=== PATIENT | male | born 1960 | race Hispanic/Latino ===

== ENCOUNTER 2021-08-23 08:16 | Emergency (ER) | payer OTHER ==
--- NOTE | 2021-08-23 08:41 | EDPHYS ---
Physician Documentation [facility] Name: Ugo Moreno Age: 60 yrs Sex: Male : 1960 Arrival Date: 08/23/2021 Time: 08:19 Bed 25 Private MD: ED Physician Geovani Cornell HPI: 08/23 08:35 This 60 yrs old Male presents to ER via Ambulatory with complaints of Insect sp3 Bite. 08:35 -year-old male with history of diabetes presents with a 2-day history of right elbow sp3 pain, swelling, redness secondary to a "insect bite". Patient denies fever, proximal or distal joint pain, loss of function in any capacity including range of motion, chest pain, fever, shortness of breath, URI symptoms, neck pain, rash anywhere else, or use of the elbow, or any other symptoms on ROS at this time. Remainder of ROS negative.. Historical: - Allergies: 08:27 No Known Allergies; aa5 - PMHx: 08:27 Diabetes mellitus; aa5 - PSHx: 08:27 None; aa5 - Immunization history:: Client reports receiving the 2nd dose of the Covid vaccine. - Social history:: Smoking status: Patient denies any tobacco usage or history of. ROS: 08:36 All other systems are negative. sp3 08:36 Constitutional: Negative for fever, chills, and weight loss, Eyes: Negative for injury, sp3 pain, redness, and discharge, ENT: Negative for injury, pain, and discharge, Neck: Negative for injury, pain, and swelling, Cardiovascular: Negative for chest pain, palpitations, and edema, Respiratory: Negative for shortness of breath, cough, wheezing, and pleuritic chest pain, Abdomen/GI: Negative for abdominal pain, nausea, vomiting, diarrhea, and constipation, Back: Negative for injury and pain, Neuro: Negative for headache, weakness, numbness, tingling, and seizure, Allergy/Immunology: Negative for hives, rash, and allergies, Endocrine: Negative for neck swelling, polydipsia, polyuria, polyphagia, and marked weight changes, Hematologic/Lymphatic: Negative for swollen nodes, abnormal bleeding, and unusual bruising. Exam: 08:36 Constitutional: This is a well developed, well nourished patient who is awake, alert, sp3 and in no acute distress. Head/Face: Normocephalic, atraumatic. Eyes: Pupils equal round and reactive to light, extra-ocular motions intact. Lids and lashes normal. Conjunctiva and sclera are non-icteric and not injected. Cornea within normal limits. Periorbital areas with no swelling, redness, or edema. Neck: Trachea midline, no thyromegaly or masses palpated, and no cervical lymphadenopathy. Supple, full range of motion without nuchal rigidity, or vertebral point tenderness. No Meningismus. Chest/axilla: Normal chest wall appearance and motion. Nontender with no deformity. No lesions are appreciated. Cardiovascular: Regular rate and rhythm with a normal S1 and S2. No gallops, murmurs, or rubs. Normal PMI, no JVD. No pulse deficits. Respiratory: Lungs have equal breath sounds bilaterally, clear to auscultation and percussion. No rales, rhonchi or wheezes noted. No increased work of breathing, no retractions or nasal flaring. Abdomen/GI: Soft, non-tender, with normal bowel sounds. No distension or tympany. No guarding or rebound. No evidence of tenderness throughout. Neuro: Awake and alert, GCS 15, oriented to person, place, time, and situation. Cranial nerves II-XII grossly intact. Motor strength 5/5 in all extremities. Sensory grossly intact. Cerebellar exam normal. Normal gait. Psych: Awake, alert, with orientation to person, place and time. Behavior, mood, and affect are within normal limits. 08:36 Skin: Right elbow demonstrates surface erythema consistent with cellulitis as well as bursa swelling. There is no joint effusion and no trauma. Overlying insect bite without abscess is noted.. Vital Signs: 08:28 BP 137 / 83; Pulse 73; Resp 16 S; Temp 97.2(TE); Pulse Ox 99% on R/A; Weight 107.05 kg aa5 (R); Height 5 ft. 10 in. (177.80 cm) (R); 08:28 Body Mass Index 33.86 (107.05 kg, 177.80 cm) aa5 MDM: 08:30 Patient medically screened. sp3 08:37 Data reviewed: vital signs, nurses notes. ED course: Patient has cellulitis and sp3 bursitis which is likely infectious in origin. I am not suspicious of joint effusion, sepsis, bacteremia, trauma, or any other critical findings at this time. Will discharge patient home on combination of Bactrim and clindamycin will treatment. Patient will receive ketorolac intramuscular here in the emergency room before discharge.. Administered Medications: 08:41 Drug: Ketorolac 30 mg Route: IM; Site: right deltoid; ap3 08:45 Follow up: Response: No adverse reaction ap3 Disposition Summary: 08/23/21 08:40 Discharge Ordered Location: Home sp3 Condition: Stable sp3 Diagnosis - Cellulitis of right upper limb sp3 - Olecranon bursitis, right elbow sp3 - Insect bite (nonvenomous) of right upper arm sp3 Followup: sp3 - With: Private Physician - When: As needed - Reason: Discharge Instructions: - Discharge Summary Sheet sp3 - Bursitis sp3 - Cellulitis, Adult sp3 Forms: - Medication Reconciliation Form sp3 - Thank You Letter sp3 - Antibiotic Education sp3 - Prescription Opioid Use sp3 Prescriptions: - Clindamycin HCl 300 mg Oral Capsule - take 1 capsule by ORAL route every 6 hours for 10 days; 40 capsule; Refills: 0, sp3 Product Selection Permitted - Bactrim DS 800-160 mg Oral Tablet - take 1 tablet by ORAL route every 12 hours for 10 days; 20 tablet; Refills: 0, sp3 Product Selection Permitted Signatures: Rosa Elena Dotson, RN RN aa5 Tanna Han RN RN ap3 Geovani Cornell MD MD sp3
--- NOTE | 2021-08-23 08:41 | ER ---
Nurse's Notes [facility] Name: Ugo Moreno Age: 60 yrs Sex: Male : 1960 Arrival Date: 08/23/2021 Time: 08:19 Bed 25 Private MD: Diagnosis: Cellulitis of right upper limb;Olecranon bursitis, right elbow;Insect bite (nonvenomous) of right upper arm Presentation: 08/23 08:28 Chief complaint: Patient states: "I got bitten by something on my right elbow and it's aa5 very painful and red". Redness noted to right elbow. Coronavirus screen: At this time, the client does not indicate any symptoms associated with coronavirus-19. Ebola Screen: No symptoms or risks identified at this time. Initial Sepsis Screen: Does the patient meet any 2 criteria? No. Patient's initial sepsis screen is negative. Does the patient have a suspected source of infection? Yes:. Risk Assessment: Do you want to hurt yourself or someone else? Patient reports no desire to harm self or others. Onset of symptoms was August 22, 2021. 08:28 Method Of Arrival: Ambulatory aa5 08:28 Acuity: OLIVE 3 aa5 Triage Assessment: 08:36 Bite description: bite sustained to right elbow by an unknown animal, animal ap3 information: vaccination(s) is not applicable. General: Appears in no apparent distress. Historical: - Allergies: 08:27 No Known Allergies; aa5 - PMHx: 08:27 Diabetes mellitus; aa5 - PSHx: 08:27 None; aa5 - Immunization history:: Client reports receiving the 2nd dose of the Covid vaccine. - Social history:: Smoking status: Patient denies any tobacco usage or history of. Screenin:36 Abuse screen: Denies threats or abuse. Nutritional screening: No deficits noted. ap3 Tuberculosis screening: No symptoms or risk factors identified. Fall Risk None identified. Assessment: 08:35 General: Appears in no apparent distress. Behavior is calm, cooperative. Pain: ap3 Complains of pain in right elbow Pain currently is 6 out of 10 on a pain scale. Neuro: Level of Consciousness is awake, alert, obeys commands, Oriented to person, place, time, situation, Gait is steady, Speech is normal. Cardiovascular: Capillary refill < 3 seconds Patient's skin is warm and dry. Respiratory: Airway is patent Respiratory effort is even, unlabored, Respiratory pattern is regular, symmetrical. GI: : No signs and/or symptoms were reported regarding the genitourinary system. Derm: Skin inflammation noted in the right elbow Skin is pink, warm \\T\\ dry. Skin temperature is warm. Vital Signs: 08:28 BP 137 / 83; Pulse 73; Resp 16 S; Temp 97.2(TE); Pulse Ox 99% on R/A; Weight 107.05 kg aa5 (R); Height 5 ft. 10 in. (177.80 cm) (R); 08:28 Body Mass Index 33.86 (107.05 kg, 177.80 cm) aa5 ED Course: 08:19 Patient arrived in ED. ds1 08:27 Arm band placed on. aa5 08:29 Triage completed. aa5 08:30 Geovani Cornell MD is Attending Physician. sp3 08:35 Tanna Han, FRANCES is Primary Nurse. ap3 08:37 Patient has correct armband on for positive identification. Bed in low position. Call ap3 light in reach. Side rails up X 1. Pulse ox on. NIBP on. Door closed. Noise minimized. 08:45 No provider procedures requiring assistance completed. Patient did not have IV access ap3 during this emergency room visit. Administered Medications: 08:41 Drug: Ketorolac 30 mg Route: IM; Site: right deltoid; ap3 08:45 Follow up: Response: No adverse reaction ap3 Outcome: 08:40 Discharge ordered by . sp3 08:45 Discharged to home ambulatory. ap3 08:45 Condition: good 08:45 Discharge instructions given to patient, Instructed on discharge instructions, follow up and referral plans. medication usage, Demonstrated understanding of instructions, follow-up care, medications, Prescriptions given X 2. 08:46 Patient left the ED. ap3 Signatures: Shilpi Sanchez ds1 Rosa Elena Dotson RN RN aa5 Tanna Han RN RN ap3 Geovani Cornell MD MD sp3
[2021-08-23 08:50] VITALS: BP 137/83; TEMP 97.2; O2SAT 99
[2021-08-23] MEDS ORDERED: KETOROLAC 30 MG/ML INJ ONE (09:04)
== END 2021-08-23 08:46 | disposition home or self-care (01) ==
LOC: ER 08:16
DX: L03.113 Cellulitis of right upper limb (principal); M70.21 Olecranon bursitis, right elbow; S50.361A Insect bite (nonvenomous) of right elbow, initial encounter; E11.9 Type 2 diabetes mellitus without complications
CPT/HCPCS: 96372; 99283